=== PATIENT | female | born 1945 | race Caucasian/White ===

== ENCOUNTER → 2016-09-06 | Outpatient (CLI) | payer MEDICARE ==
--- NOTE | 2016-09-07 11:14 | MM ---
Reason for exam: screening (asymptomatic). Last mammogram was performed 1 year and 2 months ago. History: Patient is postmenopausal. Family history of breast cancer in sister at age 62. Physical Findings: A clinical breast exam by your physician is recommended on an annual basis and results should be correlated with mammographic findings. MG Screening Mammo w CAD Bilateral CC and MLO view(s) were taken. Prior study comparison: June 23, 2015, bilateral MG screening mammo w CAD. September 10, 2013, bilateral digital screening mammo w/CAD. There are scattered fibroglandular densities. No significant changes when compared with prior studies. ASSESSMENT: Benign, BI-RAD 2 RECOMMENDATION: Routine screening mammogram of both breasts in 1 year.
== END | disposition home or self-care (01) ==
LOC: RADMAMWWP 15:30
PROVIDERS: ATTEND Family Medicine
DX: Z12.31 Encounter for screening mammogram for malignant neoplasm of breast (principal)

== ENCOUNTER → 2017-11-16 | Outpatient (CLI) | payer MEDICARE ==
--- NOTE | 2017-11-16 10:15 | BD ---
EXAMINATION TYPE: MG DEXA axial skeleton. DATE OF EXAM: 11/16/2017 COMPARISON: NONE CLINICAL HISTORY: 72 YR OLD FEMALE.....ICD-10 CODE: Z78.0, Z12.820 Height: 57.3 Weight: 129 FRAX RISK QUESTIONS: Alcohol (3 or more units per day): NO Family History (Parent hip fracture): YES Glucocorticoids (More than 3mos): NO (Ex: prednisone, prednisolone, methylprednisolone, dexamethasone, and hydrocortisone). History of Fracture in Adulthood: NO Secondary Osteoporosis: NO 1. Type 1 Diabetes: NO 2. Hyperthyroidism: NO 3. Menopause before 45: NO 4. Malnutrition: NO 5. Chronic liver disease: NO Rheumatoid Arthritis: NO Current Tobacco Use: NO RISK FACTORS HISTORY OF: RT LOWER LEG CHILD Family History of Osteoporosis: YES, HER MOTHER, WITH HIP FXS AND REPLACEMENTS Active: YES Diet low in dairy products/other sources of calcium: NO Postmenopausal woman: AT 52 YRS OLD Lost more than 2 inches in height since high school: NOT QUITE Hyperparathyroidism: NO Adrenal Insufficiency: NO MEDICATIONS: Additional Medications: CALCIUM AND VIT D...MULTIVITAMIN, BP MEDS, STATINS FOR CHOLESTEROL Additional History: NONE TO NOTE EXAM MEASUREMENTS: Bone mineral densitometry was performed using the [employer] System. Bone mineral density as measured about the Lumbar spine is: ----- L1-L4(G/cm2): 1.221 T Score Values are as follows: ----- L1: -0.2 ----- L2: 0.7 ----- L3: 1.1 ----- L4: -0.5 ----- L1-L4: 0.3 Bone mineral density FIRST BONE DENSITY AT [facility] Bone mineral density about the R hip (g/cm2): 1.073 Bone mineral density about the L hip (g/cm2): 1.081 T Score values are as follows: -----R Neck: -0.6 -----L Neck: -1.2 -----R Total: 0.5 -----L Total: 0.6 Bone mineral density FIRST AT [facility] FRAX%S: THERE IS A 14.3% CHANCE OF A MAJOR OSTEOPOROTIC FX AND A 2.5% FOR HIP FX.....PROBABILITY O F FX IN 10 YRS TIME IMPRESSION: Osteopenia (T Score between -2.5 and -1) at femoral neck level in the left hip. There is slightly increased risk of fracture and the patient may be considered for treatment. Re-Screen 2-5 years. NOTE: T-SCORE=SD OF THE YOUNG ADULT MEAN.
--- NOTE | 2017-11-20 10:11 | MM ---
Reason for exam: screening (asymptomatic). Last mammogram was performed 1 year and 2 months ago. History: Patient is postmenopausal. Family history of breast cancer in sister at age 62. Physical Findings: A clinical breast exam by your physician is recommended on an annual basis and results should be correlated with mammographic findings. MG Screening Mammo w CAD Bilateral CC and MLO view(s) were taken. Prior study comparison: September 06, 2016, bilateral MG screening mammo w CAD. June 23, 2015, bilateral MG screening mammo w CAD. The breast tissue is heterogeneously dense. This may lower the sensitivity of mammography. No suspicious abnormality. No significant changes when compared with prior studies. ASSESSMENT: Negative, BI-RAD 1 RECOMMENDATION: Routine screening mammogram of both breasts in 1 year.
== END | disposition home or self-care (01) ==
LOC: RADMAMWWP 07:40
PROVIDERS: ATTEND Family Medicine
DX: Z12.31 Encounter for screening mammogram for malignant neoplasm of breast (principal); M85.88 Other specified disorders of bone density and structure, other site
CPT/HCPCS: 77067; 77080

== ENCOUNTER 2018-06-15 05:37 | Emergency (ER) | payer MEDICARE ==
[2018-06-15] MEDS ORDERED: SODIUM CHLORIDE 0.9% 1,000 ML IV STA (05:58)
--- NOTE | 2018-06-15 06:11 | ED ---
Dizziness HPI - General Chief Complaint: Dizziness Stated Complaint: Dizziness Time Seen by Provider: 06/15/18 05:52 Source: EMS, RN notes reviewed, old records reviewed Mode of arrival: EMS Limitations: no limitations - History of Present Illness Initial Comments: This is a 73-year-old female the ER for evaluation of room spinning dizziness lightheadedness. Patient states symptoms began when she got to the bathroom this morning. She states she got up to lightheaded and cellulitis of her in the room began to spin around. She went to bed mildly improved with symptoms again continue to worsen. She presents to the ER today patient is currently asymptomatic with no symptoms of dizziness she states this positional mainly when she stands up. No headache chest pain shortness of breath. Patient does have history of high blood pressure high cholesterol MD Complaint: dizziness, lightheadedness, difficulty walking -: hour(s) Timing: sudden onset, awoke with symptoms Description: "room spinning", difficulty walking History of Same: No History of Trauma: No Severity: moderate Improves With: remaining still Worsens With: movement Associated Symptoms: denies other symptoms Review of Systems ROS Statement: Those systems with pertinent positive or pertinent negative responses have been documented in the HPI. ROS Other: All systems not noted in ROS Statement are negative. Past Medical History Past Medical History: Hyperlipidemia, Hypertension History of Any Multi-Drug Resistant Organisms: None Reported Past Surgical History: Section Past Psychological History: No Psychological Hx Reported Smoking Status: Never smoker Past Alcohol Use History: None Reported Past Drug Use History: None Reported General Exam Limitations: no limitations General appearance: alert, in no apparent distress Head exam: Present: atraumatic, normocephalic, normal inspection Eye exam: Present: normal appearance, PERRL, EOMI. Absent: scleral icterus, conjunctival injection, nystagmus, periorbital swelling ENT exam: Present: normal exam, mucous membranes moist Neck exam: Present: normal inspection. Absent: tenderness, meningismus, lymphadenopathy Respiratory exam: Present: normal lung sounds bilaterally. Absent: respiratory distress, wheezes, rales, rhonchi, stridor Cardiovascular Exam: Present: regular rate, normal rhythm, normal heart sounds. Absent: systolic murmur, diastolic murmur, rubs, gallop, clicks GI/Abdominal exam: Present: soft, normal bowel sounds. Absent: distended, tenderness, guarding, rebound, rigid Extremities exam: Present: normal inspection, full ROM, normal capillary refill. Absent: tenderness, pedal edema, joint swelling, calf tenderness Back exam: Present: normal inspection Neurological exam: Present: alert, oriented X3, CN II-XII intact Psychiatric exam: Present: normal affect, normal mood Skin exam: Present: warm, dry, intact, normal color. Absent: rash Course Vital Signs 06/15/18 06/15/18 06/15/18 05:52 07:48 08:40 Temperature 97.8 F 97.5 F L Pulse Rate 96 79 89 Respiratory 16 14 18 Rate Blood Pressure 165/90 195/90 141/66 O2 Sat by Pulse 99 98 Oximetry - Reevaluation(s) Reevaluation #1: 06/15/18 06:37 Medical record is reviewed Reevaluation #2: 06/15/18 06:37 Patient is able to ambulate without difficulty EKG Findings - EKG Comments: EKG Findings:: EKG shows sinus rhythm rate of 86, ND 166, QRS 60, QTc 445 Medical Decision Making - Medical Decision Making 73 female the ER for evaluation of dizziness and vertiginous type symptoms, CT is negative patient can be discharged home - Lab Data Result diagrams: 06/15/18 05:44 06/15/18 05:44 Lab Results 06/15/18 06/15/18 06/15/18 Range/Units 05:44 05:44 05:44 WBC 5.0 (3.8-10.6) k/uL RBC 3.82 (3.80-5.40) m/uL Hgb 12.5 (11.4-16.0) gm/dL Hct 34.9 (34.0-46.0) % MCV 91.4 (80.0-100.0) fL MCH 32.8 (25.0-35.0) pg MCHC 35.9 (31.0-37.0) g/dL RDW 12.0 (11.5-15.5) % Plt Count 242 (150-450) k/uL Neutrophils % 53 % Lymphocytes % 29 % Monocytes % 7 % Eosinophils % 6 % Basophils % 1 % Neutrophils # 2.6 (1.3-7.7) k/uL Lymphocytes # 1.5 (1.0-4.8) k/uL Monocytes # 0.4 (0-1.0) k/uL Eosinophils # 0.3 (0-0.7) k/uL Basophils # 0.0 (0-0.2) k/uL PT (9.0-12.0) sec INR (<1.2) APTT (22.0-30.0) sec Sodium 141 (137-145) mmol/L Potassium 4.1 (3.5-5.1) mmol/L Chloride 107 (98-107) mmol/L Carbon Dioxide 25 (22-30) mmol/L Anion Gap 9 mmol/L BUN 21 H (7-17) mg/dL Creatinine 0.95 (0.52-1.04) mg/dL Est GFR (CKD-EPI)AfAm 70 (>60 ml/min/1.73 sqM) Est GFR (CKD-EPI)NonAf 61 (>60 ml/min/1.73 sqM) Glucose 104 H (74-99) mg/dL POC Glucose (mg/dL) (75-99) mg/dL POC Glu Test Fixture Designer ID Calcium 9.0 (8.4-10.2) mg/dL Phosphorus 4.0 (2.5-4.5) mg/dL Magnesium 1.7 (1.6-2.3) mg/dL Total Bilirubin 0.5 (0.2-1.3) mg/dL AST 30 (14-36) U/L ALT 29 (9-52) U/L Alkaline Phosphatase 81 (38-126) U/L Total Creatine Kinase 101 (30-135) U/L CK-MB (CK-2) 0.9 (0.0-2.4) ng/mL CK-MB (CK-2) Rel Index 0.9 Troponin I <0.012 (0.000-0.034) ng/mL Total Protein 6.5 (6.3-8.2) g/dL Albumin 4.0 (3.5-5.0) g/dL 06/15/18 06/15/18 Range/Units 05:44 05:53 WBC (3.8-10.6) k/uL RBC (3.80-5.40) m/uL Hgb (11.4-16.0) gm/dL Hct (34.0-46.0) % MCV (80.0-100.0) fL MCH (25.0-35.0) pg MCHC (31.0-37.0) g/dL RDW (11.5-15.5) % Plt Count (150-450) k/uL Neutrophils % % Lymphocytes % % Monocytes % % Eosinophils % % Basophils % % Neutrophils # (1.3-7.7) k/uL Lymphocytes # (1.0-4.8) k/uL Monocytes # (0-1.0) k/uL Eosinophils # (0-0.7) k/uL Basophils # (0-0.2) k/uL PT 10.4 (9.0-12.0) sec INR 1.1 (<1.2) APTT 22.9 (22.0-30.0) sec Sodium (137-145) mmol/L Potassium (3.5-5.1) mmol/L Chloride (98-107) mmol/L Carbon Dioxide (22-30) mmol/L Anion Gap mmol/L BUN (7-17) mg/dL Creatinine (0.52-1.04) mg/dL Est GFR (CKD-EPI)AfAm (>60 ml/min/1.73 sqM) Est GFR (CKD-EPI)NonAf (>60 ml/min/1.73 sqM) Glucose (74-99) mg/dL POC Glucose (mg/dL) 115 H (75-99) mg/dL POC Glu Test Fixture Designer ID Jennifer Jacob Calcium (8.4-10.2) mg/dL Phosphorus (2.5-4.5) mg/dL Magnesium (1.6-2.3) mg/dL Total Bilirubin (0.2-1.3) mg/dL AST (14-36) U/L ALT (9-52) U/L Alkaline Phosphatase (38-126) U/L Total Creatine Kinase (30-135) U/L CK-MB (CK-2) (0.0-2.4) ng/mL CK-MB (CK-2) Rel Index Troponin I (0.000-0.034) ng/mL Total Protein (6.3-8.2) g/dL Albumin (3.5-5.0) g/dL - Radiology Data Radiology results: report reviewed (CT brain is negative for acute disease), image reviewed Disposition Clinical Impression: Benign paroxysmal positional vertigo Disposition: HOME SELF-CARE Condition: Good Instructions: Vertigo (ED) Is patient prescribed a controlled substance at d/c from ED?: No Referrals: Gilmer Zapata III, MD [Primary Care Provider] - 1-2 days
[2018-06-15 06:36] LABS: Glucose,Whole Blood 115 mg/dL (75-99)
[2018-06-15] MEDS ORDERED: MECLIZINE 12.5 MG TAB PO STA (06:38)
[2018-06-15] MEDS ORDERED: ONDANSETRON 4 MG/2 ML VIAL IVP STA (06:38)
[2018-06-15 06:45] LABS: Basophils % (A) 1 %; Eosinophils # (A) 0.3 k/uL (0-0.7); Eosinophils % (A) 6 %; HCT 34.9 % (34.0-46.0); HGB 12.5 gm/dL (11.4-16.0); Lymphocytes # (A) 1.5 k/uL (1.0-4.8); Lymphocytes % (A) 29 %; MCH 32.8 pg (25.0-35.0); MCHC 35.9 g/dL (31.0-37.0); MCV 91.4 fL (80.0-100.0); Mean Platelet Volume 7.4; Monocytes # (A) 0.4 k/uL (0-1.0); Monocytes % (A) 7 %; Neutrophils # (A) 2.6 k/uL (1.3-7.7); Neutrophils % (A) 53 %; Platelet Count 242 k/uL (150-450); RBC 3.82 m/uL (3.80-5.40)
[2018-06-15 06:54] LABS: INR 1.1 (<1.2); Partial Thromboplastin Time 22.9 sec (22.0-30.0); Prothrombin Time 10.4 sec (9.0-12.0)
--- NOTE | 2018-06-15 07:13 | CT ---
EXAMINATION TYPE: CT brain wo con DATE OF EXAM: 06/15/2018 COMPARISON: NONE HISTORY: Dizziness CT DLP: 1169.4 mGycm Automated exposure control for dose reduction was used. FINDINGS: Central structures are midline. There is no evidence of hydrocephalus. No acute focal lesion, mass ef fect or midline shift is seen. I do not see evidence of intracranial blood. Visualized portions of the paranasal sinuses and mastoids are clear. The bony calvarium is intact. IMPRESSION: NORMAL CT SCAN OF THE BRAIN.
[2018-06-15 07:19] LABS: Magnesium 1.7 mg/dL (1.6-2.3); Potassium 4.1 mmol/L (3.5-5.1); Total Bilirubin 0.5 mg/dL (0.2-1.3); Total Protein 6.5 g/dL (6.3-8.2)
[2018-06-15 07:38] LABS: Creatine Kinase 101 U/L (30-135)
[2018-06-15 07:50] LABS: Creatine Kinase MB 0.9 ng/mL (0.0-2.4); Troponin I <0.012 ng/mL (0.000-0.034)
[2018-06-15 08:57] VITALS: BP 141/66; PULSE 89; RESP 18; TEMP 97.5
== END 2018-06-15 08:41 | disposition home or self-care (01) ==
LOC: EC 05:37
DX: H81.10 Benign paroxysmal vertigo, unspecified ear (principal)
CPT/HCPCS: 36415; 93005; 80053; 82550; 82553; 83735; 84100; 84484; 85025; 85610; 85730; 70450; 99285; 96374; 96361; J2405

== ENCOUNTER → 2018-07-09 | Outpatient (CLI) | payer MEDICARE ==
--- NOTE | 2018-07-09 12:06 | ECHOF ---
Referral Reason:R01.1 Cardiac murmur MEASUREMENTS -------- HEIGHT: 127.0 cm WEIGHT: 54.4 kg BP: RVIDd: 2.2 cm (< 3.3) IVSd: 1.4 cm (0.6 - 1.1) LVIDd: 2.8 cm (3.9 - 5.3) LVPWd: 1.5 cm (0.6 - 1.1) IVSs: 1.7 cm LVIDs: 1.9 cm LVPWs: 1.7 cm LAESV Index (A-L): 29.02 ml/m Ao Diam: 2.3 cm (2.0 - 3.7) AV Cusp: 1.4 cm (1.5 - 2.6) LA Diam: 3.2 cm (2.7 - 3.8) MV EXCURSION: 15.510 mm (> 18.000) MV EF SLOPE: 68 mm/s (70 - 150) EPSS: 0.5 cm MV E Ramiro: 1.06 m/s MV DecT: 103 ms MV A Ramiro: 1.23 m/s MV E/A Ratio: 0.86 AR PHT: 522 ms RAP: 5.00 mmHg RVSP: 32.70 mmHg FINDINGS -------- Sinus rhythm. This was a technically good study. The left ventricular size is normal. There is moderate concentric left ventricular hypertrophy. O verall left ventricular systolic function is normal with, an EF between 55 - 60 %. The right ventricle is normal in size and function. LA is midly dilated 29-33ml/m2. The right atrium is normal in size. Aortic valve is trileaflet and is mildly thickened. There is mild aortic regurgitation. Mild mitral annular calcification present. Severe mitral regurgitation is present. Mild tricuspid regurgitation present. Right ventricular systolic pressure is normal at < 35 mmHg. The right ventricular systolic pressure, as measured by Doppler, is 32.70mmHg. There is no pulmonic regurgitation present. The aortic root size is normal. Normal inferior vena cava with normal inspiratory collapse consistent with estimated right atrial pre ssure of 5 mmHg. There is no pericardial effusion. CONCLUSIONS -------- 1. Sinus rhythm. 2. This was a technically good study. 3. The left ventricular size is normal. 4. There is moderate concentric left ventricular hypertrophy. 5. Overall left ventricular systolic function is normal with, an EF between 55 - 60 %. 6. LA is midly dilated 29-33ml/m2. 7. Aortic valve is trileaflet and is mildly thickened. 8. There is mild aortic regurgitation. 9. Mild mitral annular calcification present. 10. Severe mitral regurgitation is present. 11. Mild tricuspid regurgitation present. 12. Right ventricular systolic pressure is normal at < 35 mmHg. 13. There is no pulmonic regurgitation present. 14. The aortic root size is normal. 15. Normal inferior vena cava with normal inspiratory collapse consistent with estimated right atrial pressure of 5 mmHg. 16. There is no pericardial effusion. DEBONE SUPERVISOR: Janny Banda RDCS
== END | disposition home or self-care (01) ==
LOC: RADECHMAIN 08:22
PROVIDERS: ATTEND Family Medicine
DX: I08.3 Combined rheumatic disorders of mitral, aortic and tricuspid valves (principal)
CPT/HCPCS: 93306

== ENCOUNTER → 2018-08-08 | Outpatient (CLI) | payer MEDICARE ==
--- NOTE | 2018-08-08 10:41 | US ---
EXAMINATION TYPE: US extremity nonvasc mass RT DATE OF EXAM: 08/08/2018 COMPARISON: NONE CLINICAL HISTORY: R22.41 Localized swelling, mass and lump, right. Patient has palpable lump posterior right calf. She has had for some time and believes it has reduced in size by half. Mildly hyperechoic mass measuring 1.8 x 0.4 x 1.0cm, possible lipoma. Targeted ultrasound just below skin surface shows oval well-defined hyperechoic lesion favoring lipom a or other benign etiology superficial to the deeper muscles. IMPRESSION: As above.
== END | disposition home or self-care (01) ==
LOC: RADUSWWP 08:10
PROVIDERS: ATTEND Family Medicine
DX: R22.41 Localized swelling, mass and lump, right lower limb (principal)

== ENCOUNTER → 2018-08-14 | Outpatient (CLI) | payer MEDICARE ==
[2018-08-14 11:58] LABS: HCT 36.9 % (34.0-46.0); HGB 13.3 gm/dL (11.4-16.0); MCH 31.9 pg (25.0-35.0); MCV 88.8 fL (80.0-100.0); Mean Platelet Volume 6.9; Platelet Count 218 k/uL (150-450); RBC 4.15 m/uL (3.80-5.40); RDW 11.9 % (11.5-15.5); WBC 6.4 k/uL (3.8-10.6)
[2018-08-14 12:19] LABS: Potassium 3.9 mmol/L (3.5-5.1)
== END | disposition home or self-care (01) ==
LOC: LABPAT 11:12
PROVIDERS: ATTEND Internal Medicine Interventional Cardiology
DX: Z01.812 Encounter for preprocedural laboratory examination (principal); I34.0 Nonrheumatic mitral (valve) insufficiency; E78.2 Mixed hyperlipidemia
CPT/HCPCS: 36415; 80051; 82565; 82947; 84520; 85027

== ENCOUNTER 2018-08-22 05:55 | Day surgery (SDC) | payer MEDICARE ==
[2018-08-20 15:58] VITALS: BMI 25.2
[2018-08-22] MEDS ORDERED: ALPRAZolam 0.25 MG TAB PO PRN (06:01)
[2018-08-22] MEDS ORDERED: ALPRAZolam 0.5 MG TAB PO PRN (06:01)
[2018-08-22] MEDS ORDERED: SODIUM CHLORIDE 0.9% 1,000 ML in EMPTY BAG 1 BAG IV ONE (06:01)
[2018-08-22] MEDS ORDERED: ATORVASTATIN 80 MG TAB PO ONE (06:01)
[2018-08-22] MEDS ORDERED: NITROGLYCERIN SL TABS 0.4 MG TAB SUBLINGUAL PRN (06:01)
[2018-08-22] MEDS ORDERED: ASPIRIN 325 MG TAB PO ONE (06:01)
[2018-08-22 06:54] VITALS: TEMP 97.9
[2018-08-22] MEDS ORDERED: fentaNYL (PF) 50 MCG/ML 2 ML AMP ONE (06:58)
[2018-08-22] MEDS ORDERED: IV FLUID CONTINUATION 850 ML IV ONE (07:08)
[2018-08-22] MEDS: BENZOCAINE SPRAY 1 CAN MUCOUS MEM ONE ×2 (07:08→07:10)
[2018-08-22] MEDS ORDERED: fentaNYL (PF) 50 MCG/ML 2 ML AMP IV ONE (07:11)
[2018-08-22] MEDS ORDERED: MIDAZOLAM 2 MG/2 ML VIAL IVP ONE (07:11)
[2018-08-22] MEDS ORDERED: LIDOCAINE 1% INJ 10MG/ML (20 ML MDV) ONE (07:19)
[2018-08-22 07:22] VITALS: PULSE 97
[2018-08-22] MEDS ORDERED: VERAPAMIL 2.5 MG/ML 2 ML AMP ONE (07:41)
[2018-08-22] MEDS ORDERED: amLODIPine 5 MG TAB ONE (07:48)
[2018-08-22] MEDS ORDERED: amLODIPine 5 MG TAB PO ONE (07:48)
[2018-08-22] MEDS ORDERED: LIDOCAINE 1% INJ 10MG/ML (20 ML MDV) SQ ONE (08:04)
[2018-08-22] MEDS ORDERED: VERAPAMIL SYRINGE (5 MG/10 ML) INTRAARTER ONE (08:06)
[2018-08-22] MEDS ORDERED: HEPARIN SODIUM 1,000 UN/ML (10ML VL) IV ONE (08:09)
[2018-08-22] MEDS ORDERED: NITROGLYCERIN SL TABS 0.4 MG TAB SUBLINGUAL ONE ×2 (08:20→08:21)
[2018-08-22] MEDS ORDERED: IOPAMIDOL-370 125ML BTL INJ ONE (08:28)
[2018-08-22 08:33] LABS: O2 Sat Blood Gas 95.7 %
[2018-08-22 08:36] LABS: O2 Sat Blood Gas 70.9 %
[2018-08-22 08:38] LABS: O2 Sat Blood Gas 69.2 %
[2018-08-22] MEDS ORDERED: RX INFO: IV CONTRAST WAS GIVEN 1 EACH MISC MISCELLANE PRN (08:38)
[2018-08-22] MEDS ORDERED: SODIUM CHLORIDE 0.9% 1,000 ML IV SCH (08:45)
--- NOTE | 2018-08-22 08:57 | ECHOT ---
TRANSESOPHAGEAL ECHOCARDIOGRAM TRANSESOPHAGEAL ECHOCARDIOGRAM: INDICATION: Evaluation of mitral valve. PROCEDURE: After explaining the procedure to the patient, its risks and complication, blood pressure, heart rate, O2 saturation was monitored. The throat was sprayed with Cetacaine, she received 2 mg intravenous Versed and 50 mcg intravenous fentanyl. After achieving moderate conscious sedated state, the probe was introduced into the esophagus without difficulty. Images were obtained. Following that, the probe was removed. There was no immediate complication. FINDINGS: Left atrial size is normal. Left atrial appendage is normal. The left ventricular size and systolic function normal. The aortic valve, mitral valve, tricuspid valve and pulmonic valve are normal. Descending thoracic aorta appears to be normal. No pericardial effusion was noted. Contrast bubble study revealed no shunting across the interatrial septum. Doppler pulse wave and color Doppler obtained and revealed a half and revealed moderate mitral with mild tricuspid and pulmonic regurgitation. There was no shunting by color Doppler study. CONCLUSION: 1. Normal left ventricular size and systolic function. 2. Normal appearance of the left atrial appendage. 3. Moderate mitral regurgitation with normal appearance of the valve. 4. Mild mitral and aortic regurgitation. 5. No shunting across the interatrial septum. 6. No pericardial effusion. MMODL / IJN: [id number] /
[2018-08-22] MEDS ORDERED: amLODIPine 5 MG TAB PO SCH (09:00)
[2018-08-22] MEDS ORDERED: LISINOPRIL-HCTZ 20-12.5 MG 1 EACH TAB PO SCH (09:00)
[2018-08-22] MEDS ORDERED: NON-FORMULARY DRUG (Calcium Carbonate [Calcium] 600 MG) PO SCH (09:00)
[2018-08-22] MEDS ORDERED: MULTIVITAMINS, THERA 1 EACH TAB PO SCH (09:00)
--- NOTE | 2018-08-22 09:17 | CC ---
CARDIAC CATHETERIZATION REPORT Mrs. Mcintosh is a 73-year-old female with known history of hypertension and hyperlipidemia who recently has been complaining of progressive fatigue and her echocardiogram was reported showing severe mitral regurgitation. In view of that, recommendation made regarding cardiac catheterization. The procedures, risks and complications were discussed with the patient, who is in full understanding and agreement. PROCEDURE: Patient was brought to the analytical laboratory technician in a fasting semi-sedated state after receiving fentanyl and Benadryl and achieving moderate conscious sedated state. Using Xylocaine anesthesia and Seldinger technique, a 6-Fijian sheath was introduced in the right radial artery. Subsequently, using a guidewire exchange technique, the venous catheter in the right basilic vein was exchanged to a 6-Fijian sheath. The right heart catheterization was performed using Kingston-Josef catheter, multiple pressure and samples were obtained. Cardiac output by thermodilution was calculated. Following that, selective right and left coronary angiography was performed using 5-Fijian, 3.5 bend right and left Dariel catheter. Multiple views of the coronary artery including hemiaxial views were obtained. Following that, a 5-Fijian tight pigtail catheter was introduced into the left ventricle and a 30 degree [place] view of the left ventricle was obtained. Following that, catheter and sheath were removed. Hemostasis was obtained with deployment of a TR band and compression of the right basilic vein. There was no immediate complication. Patient was returned to her room in stable condition. Of note, patient received 4000 units of intravenous heparin. FINDINGS: HEMODYNAMICS: Right atrial saturation of 69%, pulmonary saturation of 71%, arterial saturation of 96%. Cardiac output by thermodilution of 4.7 L/minute. Pulmonary artery systolic pressure of 32 with a diastolic of 7 and a mean of 18 mmHg. Pulmonary capillary wedge pressure, A-wave of 10, V-wave of 10 with a mean of 6 mmHg. Right ventricular systolic pressure of 36 with an end-diastolic pressure of 4 mmHg, right atrial A-wave of 7 with a V-wave of 6, with a mean of 4 mmHg. There was no gradient across the aortic valve. The left ventricular end-diastolic pressure was 12 to 14 mmHg. Cardiac output by Shireen 3.5 L/minute. CORONARIES: LEFT MAIN: This vessel is almost nonexistent, bifurcating immediately to LAD and left circumflex. LEFT ANTERIOR DESCENDING ARTERY: This is a large-sized vessel, reaching toward the apex with a wraparound apex segment, giving rise to 2 diagonal branches. The second diagonal branch is large in caliber. The left anterior descending artery and its branches have no evidence of obstructive coronary artery disease. LEFT CIRCUMFLEX: This is a large codominant vessel, giving rise to a proximal, moderately-sized obtuse marginal branch. The second and third obtuse marginal branches are small in caliber, distally bifurcating into PDA and posterolateral segment branches. The left circumflex as well as branches have no evidence of obstructive coronary artery disease. RIGHT CORONARY ARTERY: This is a moderately size, codominant vessel, that has no evidence of high-grade stenosis. LEFT VENTRICULOGRAM: Left ventriculogram was performed in 30 degree [place] view and revealed normal left ventricular size and systolic function. There was 1 to 2+ mitral regurgitation. CONCLUSION: 1. Normal coronary arteries. 2. Normal right-sided pressure. 3. Normal left ventricular size and systolic function with 1 to 2+ mitral regurgitation. RECOMMENDATION: In view of finding anatomy, I see no evidence of significant mitral regurgitation. I will continue medical therapy with aggressive risk modifications being initiated. Those findings and recommendation were discussed with the patient and her family who are in full understanding and agreement. Duration of procedure is 30 minutes. MMODL / IJN: [id number] /
[2018-08-22 13:47] VITALS: BP 145/65; RESP 20
[2018-08-22] MEDS ORDERED: ATORVASTATIN 20 MG TAB PO SCH (21:00)
[2018-08-22] MEDS ORDERED: NON-FORMULARY DRUG (Aspirin [Adult Low Dose Aspirin Ec] 81 MG) PO SCH (21:00)
== END 2018-08-22 14:10 | disposition home or self-care (01) ==
LOC: CATHCVL 05:55
PROVIDERS: ATTEND Internal Medicine Interventional Cardiology
DX: I08.3 Combined rheumatic disorders of mitral, aortic and tricuspid valves (principal); I10 Essential (primary) hypertension; E78.2 Mixed hyperlipidemia; Z72.0 Tobacco use; Z79.82 Long term (current) use of aspirin; Z79.899 Other long term (current) drug therapy
CPT/HCPCS: 93312; 93320; 93325; 93460; 85018; 82810; C1894 ×2; C1751; C1769 ×2; J2250; J2001; J3010; J1644; Q9967

== ENCOUNTER → 2018-11-20 | Outpatient (CLI) | payer MEDICARE ==
--- NOTE | 2018-11-21 10:41 | MM ---
Reason for exam: screening (asymptomatic). Last mammogram was performed 1 year ago. History: Patient is postmenopausal. Family history of breast cancer in sister at age 62. Physical Findings: A clinical breast exam by your physician is recommended on an annual basis and results should be correlated with mammographic findings. MG Screening Mammo w CAD Bilateral CC and MLO view(s) were taken. Prior study comparison: November 16, 2017, bilateral MG screening mammo w CAD. September 06, 2016, bilateral MG screening mammo w CAD. The breast tissue is heterogeneously dense. This may lower the sensitivity of mammography. No suspicious abnormality. No significant changes when compared with prior studies. ASSESSMENT: Negative, BI-RAD 1 RECOMMENDATION: Routine screening mammogram of both breasts in 1 year.
== END | disposition home or self-care (01) ==
LOC: RADMAMWWP 09:08
PROVIDERS: ATTEND Family Medicine
DX: Z12.31 Encounter for screening mammogram for malignant neoplasm of breast (principal)
CPT/HCPCS: 77067

== ENCOUNTER → 2020-02-09 | Outpatient (CLI) | payer MEDICARE ==
--- NOTE | 2020-02-11 10:33 | MM ---
Reason for exam: screening (asymptomatic). Last mammogram was performed 1 year and 3 months ago. History: Patient is postmenopausal. Family history of breast cancer in sister at age 62. Physical Findings: A clinical breast exam by your physician is recommended on an annual basis and results should be correlated with mammographic findings. MG 3D Screening Mammo W/Cad Bilateral CC and MLO view(s) were taken. Prior study comparison: November 20, 2018, bilateral MG screening mammo w CAD. November 16, 2017, bilateral MG screening mammo w CAD. The breast tissue is heterogeneously dense. This may lower the sensitivity of mammography. No significant changes when compared with prior studies. ASSESSMENT: Benign, BI-RAD 2 RECOMMENDATION: Routine screening mammogram of both breasts in 1 year.
== END | disposition home or self-care (01) ==
LOC: RADMAMWWP 09:35
PROVIDERS: ATTEND Family Medicine
DX: Z12.31 Encounter for screening mammogram for malignant neoplasm of breast (principal)
CPT/HCPCS: 77063; 77067

== ENCOUNTER → 2020-03-29 | Outpatient (CLI) | payer MEDICARE ==
--- NOTE | 2020-03-30 08:57 | BD ---
EXAMINATION TYPE: Axial Bone Density DATE OF EXAM: 03/29/2020 COMPARISON: Prior DEXA bone scan November 16, 2017 CLINICAL HISTORY: Postmenopausal female. Height: 58 Weight: 123.5 FRAX RISK QUESTIONS: Alcohol (3 or more units per day): no Family History (Parent hip fracture): no Glucocorticoids (More than 3mos): no (Ex: prednisone, prednisolone, methylprednisolone, dexamethasone, and hydrocortisone). History of Fracture in Adulthood: no Secondary Osteoporosis: 1. Type 1 Diabetes: no 2. Hyperthyroidism: no 3. Menopause before 45: no 4. Malnutrition: no 5. Chronic liver disease: no Rheumatoid Arthritis: no Current Tobacco Use: no RISK FACTORS HISTORY OF: Surgery to Spine/Hip(right/left)/Wrist (right/left): no Family History of Osteoporosis: yes Active: yes Diet low in dairy products/other sources of calcium: yes Postmenopausal woman: age 52 Lost more than 2 inches in height since high school: no MEDICATIONS: atorvastatin, amlodipine, metoprolol, hydrochlorothiazide Additional History: EXAM MEASUREMENTS: Bone mineral densitometry was performed using the [employer] System. Bone mineral density as measured about the Lumbar spine is: ----- L1-L4(G/cm2): 1.226 T Score Values are as follows: ----- L2: 0.3 ----- L3: 1.1 ----- L4: 0.2 ----- L1-L4: 0.4 Bone mineral density has: increased 1.4 % since study of: 11.16.2017 Bone mineral density about the R hip (g/cm2): 0.955 Bone mineral density about the L hip (g/cm2): 0.870 T Score values are as follows: -----R Neck: -0.6 -----L Neck: -1.2 -----R Total: 0.6 -----L Total: 0.5 Bone mineral density has: increased 0.6 % since study of: 11.16.2017 IMPRESSION: Osteopenia (T Score between -2.5 and -1) femoral neck level in the left hip. There is slightly increased risk of fracture and the patient may be considered for treatment. Re-Screen 2-5 years. NOTE: T-SCORE=SD OF THE YOUNG ADULT MEAN.
== END | disposition home or self-care (01) ==
LOC: RADBDWWP 15:25
PROVIDERS: ATTEND Family Medicine
DX: M85.852 Other specified disorders of bone density and structure, left thigh (principal); Z78.0 Asymptomatic menopausal state
CPT/HCPCS: 77080

== ENCOUNTER → 2021-02-10 | Outpatient (CLI) | payer MEDICARE ==
--- NOTE | 2021-02-11 12:25 | MM ---
Reason for exam: screening (asymptomatic). Last mammogram was performed 1 year ago. History: Patient is postmenopausal. Family history of breast cancer in sister at age 62. Physical Findings: A clinical breast exam by your physician is recommended on an annual basis and results should be correlated with mammographic findings. MG Screening Mammo w CAD Bilateral CC and MLO view(s) were taken. Prior study comparison: February 09, 2020, bilateral MG 3d screening mammo w/cad. November 20, 2018, bilateral MG screening mammo w CAD. There are scattered fibroglandular densities. ASSESSMENT: Negative, BI-RAD 1 RECOMMENDATION: Routine screening mammogram of both breasts in 1 year.
== END | disposition home or self-care (01) ==
LOC: RADMAMWWP 09:31
PROVIDERS: ATTEND Family Medicine
DX: Z12.31 Encounter for screening mammogram for malignant neoplasm of breast (principal); Z78.0 Asymptomatic menopausal state; Z80.3 Family history of malignant neoplasm of breast
CPT/HCPCS: 77067

== ENCOUNTER → 2022-12-06 | Outpatient (CLI) | payer MEDICARE ==
--- NOTE | 2022-12-07 19:37 | MM ---
Reason for Exam: Screening (asymptomatic). Last mammogram was performed 1 year(s) and 10 month(s) ago. Patient History: Menarche at age 14. First Full-Term at age 27. Postmenopausal. Patient used Estrogen for 3 years. Sister had breast cancer, age 62. Risk Values: Ayesha 5 year model risk: 3.5%. NCI Lifetime model risk: 7.4%. Prior Study Comparison: 11/20/2018 Bilateral Screening Mammogram, [facility]. 02/09/2020 Bilateral Screening Mammogram, [facility]. 02/10/2021 Bilateral Screening Mammogram, [facility]. Tissue Density: The breast tissue is heterogeneously dense. This may lower the sensitivity of mammography. Findings: Analyzed By CAD. There is no suspicious group of microcalcifications or new suspicious mass in either breast. Overall Assessment: Negative, BI-RAD 1 Management: Screening Mammogram of both breasts in 1 year. . Patient should continue monthly self-breast exams. A clinical breast exam by your physician is recommended on an annual basis. This exam should not preclude additional follow-up of suspicious palpable abnormalities. Note on Ayesha scores and lifetime risk: 1. A Ayesha score greater than 3% is considered moderate risk. If this is the case, consider specialist referral to assess eligibility for a risk reducing agent. 2. If overall lifetime risk for the development of breast cancer is 20% or higher, the patient may qualify for future screening with alternating mammogram and breast MRI. Electronically signed and approved by: Michael Nguyen M.D. Radiologist
== END | disposition home or self-care (01) ==
LOC: RADMAMWWP 13:33
PROVIDERS: ATTEND Family Medicine
DX: Z12.31 Encounter for screening mammogram for malignant neoplasm of breast (principal); Z78.0 Asymptomatic menopausal state; Z80.3 Family history of malignant neoplasm of breast
CPT/HCPCS: 77063; 77067

== ENCOUNTER → 2024-04-25 | Outpatient (CLI) | payer MEDICARE ==
--- NOTE | 2024-04-27 15:23 | MM ---
Reason for Exam: Screening (asymptomatic). Last mammogram was performed 1 year(s) and 4 month(s) ago. Patient History: Menarche at age 14. First Full-Term at age 27. Postmenopausal. Patient used Estrogen for 3 years. Niece had breast cancer under age 50. Sister had breast cancer, age 62. Risk Values: Ayesha 5 year model risk: 3.4%. NCI Lifetime model risk: 6.5%. Prior Study Comparison: 02/09/2020 Bilateral Screening Mammogram, [facility]. 02/10/2021 Bilateral Screening Mammogram, [facility]. 12/06/2022 Bilateral MG 3D screening mammo w/cad, [facility]. Tissue Density: There are scattered areas of fibroglandular density. Findings: Analyzed By CAD. The pattern is symmetrical. Very faint calcification may be within the outer right breast. This appears to be 9 o'clock middle position. Magnification views are recommended. Following wiping of the axilla repeat imaging was performed. There is persistence of the pelvis type appearance the right axillary region. Follow-up recommended. Left breast:No suspicious groups of microcalcifications, spiculated or lobular masses, architectural distortion or other secondary signs of malignancy are mammographically apparent. Overall Assessment: Incomplete: need additional imaging evaluation, BI-RAD 0 Management: Diagnostic Mammogram of the right breast. A negative mammogram report should not preclude additional follow up of suspicious palpable abnormalities. Patient should continue monthly self breast exam. A clinical breast exam by your physician is recommended on an annual basis and results should be correlated with mammographic findings. Note on Ayesha scores and lifetime risk: 1. A Ayesha score greater than 3% is considered moderate risk. If this is the case, consider specialist referral to assess eligibility for a risk reducing agent. 2. If overall lifetime risk for the development of breast cancer is 20% or higher, the patient may qualify for future screening with alternating mammogram and breast MRI. [facility], , 04/27/2024 3:20 PM. Electronically signed and approved by: Salo Stuart D.O. Radiologis
== END | disposition home or self-care (01) ==
LOC: RADMAMWWP 13:56
PROVIDERS: ATTEND Family Medicine
DX: Z12.31 Encounter for screening mammogram for malignant neoplasm of breast
CPT/HCPCS: 77063; 77067

== ENCOUNTER → 2024-04-29 | Outpatient (CLI) | payer MEDICARE ==
--- NOTE | 2024-04-29 10:34 | MM ---
Reason for Exam: Additional evaluation requested from abnormal screening. Last screening mammogram was performed less than 1 month ago. Patient History: Menarche at age 14. First Full-Term at age 27. Postmenopausal. Patient used Estrogen for 3 years. Niece had breast cancer under age 50. Sister had breast cancer, age 62. Risk Values: Ayesha 5 year model risk: 3.4%. NCI Lifetime model risk: 6.5%. Tissue Density: Right: The breasts are heterogeneously dense, which may obscure small masses. Findings: Analyzed By CAD. Vascular calcifications identified without suspicious cluster evident. Overall Assessment: Benign, BI-RAD 2 Management: Screening Mammogram of both breasts in 1 year. . Results were given to the patient verbally at the time of exam. Patient should continue monthly self-breast exams. A clinical breast exam by your physician is recommended on an annual basis. This exam should not preclude additional follow-up of suspicious palpable abnormalities. Note on Ayesha scores and lifetime risk: 1. A Ayesha score greater than 3% is considered moderate risk. If this is the case, consider specialist referral to assess eligibility for a risk reducing agent. 2. If overall lifetime risk for the development of breast cancer is 20% or higher, the patient may qualify for future screening with alternating mammogram and breast MRI. [facility], , 04/29/2024 10:13 AM. Electronically signed and approved by: Angel Toledo M.D. Radiologis
== END | disposition home or self-care (01) ==
LOC: RADMAMWWP 09:06
PROVIDERS: ATTEND Family Medicine
CPT/HCPCS: 77061; 77065